=== PATIENT | female | born 1940 ===

== ENCOUNTER 2019-10-07 12:15 | Outpatient (CLI) | payer MEDICARE ==
--- NOTE | 2019-10-07 15:23 | MRI ---
MRI LUMBAR SPINE: DATE: 10/07/2019. PROVIDED CLINICAL HISTORY: Lumbar radiculopathy. FINDINGS: Five lumbar vertebral bodies are assumed. There is grade I anterolisthesis of L3 on L4. Lumbar alig nment appears otherwise normal. Vertebral body heights appear preserved. No focal concerning region al marrow signal abnormality evident. The conus medullaris is normal in signal and terminates at an appropriate level. At L1-2, there is a broad-based disk bulge with a superimposed small central disk protrusion. 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 No significant central canal or foraminal narrowing apparent. At L2-3, there is a broad-based disk bulge and bilateral facet arthritis. There is mild central marie l stenosis with asymmetric effacement of the left lateral recess and potential for impingement on the traversing left L3 nerve root. There is moderate left foraminal narrowing. There is no significant right foraminal narrowing apparent. At L3-4, there is a broad-based disk bulge and bilateral facet arthritis. There is severe central ca nal stenosis. There is moderate left foraminal narrowing. There is no significant right foraminal n arrowing apparent. At L4-5, there is a broad-based disk bulge and bilateral facet arthritis. There is a broad disk prot rusion involving the right foraminal and lateral regions with associated displacement of the exiting right L4 nerve root. There is asymmetric effacement of the right lateral recess with potential for i mpingement upon the traversing right L5 nerve root. At L5-S1, there is a broad-based disk-osteophyte complex and bilateral facet arthritis. There is mod erate left foraminal narrowing and mild right foraminal narrowing. There is no significant central c anal stenosis apparent. IMPRESSION: Advanced multilevel lumbar disk and facet degenerative changes producing areas of canal and foraminal narrowing up to severe in degree, as described above. POS: OFF
== END 2019-10-07 12:16 | disposition home or self-care (01) ==
LOC: BICMRI 12:15
PROVIDERS: ATTEND Family Medicine
DX: M47.26 Other spondylosis with radiculopathy, lumbar region (principal); M51.16 Intervertebral disc disorders with radiculopathy, lumbar region; M48.061 Spinal stenosis, lumbar region without neurogenic claudication; M48.07 Spinal stenosis, lumbosacral region
CPT/HCPCS: 72148